=== PATIENT | female | born 1990 | race Two or more races ===

== ENCOUNTER 2022-08-09 11:37 | Emergency (ER) | payer OTHER ==
[~2022-08-09] VITALS: Ht 162.6 cm; Wt 61.2 kg
--- NOTE | 2022-08-09 12:25 | NUR ---
C/O RIGHT EYE SWELLING S/P "SOMETHING WENT INTO MY EYE" YESTERDAY AFTERNOON
[2022-08-09] MEDS ORDERED: FLUORESCEIN SODIUM OPHTH 1 EA STRIP ONE (12:58)
[2022-08-09] MEDS ORDERED: TETRAcaine 5 ML BOTTLE EACHEYE ONE (13:00)
[2022-08-09] MEDS ORDERED: FLUORESCEIN SODIUM OPHTH 1 EA STRIP OP ONE (13:00)
[2022-08-09] MEDS ORDERED: SULF1TAB48 PO (13:30)
--- NOTE | 2022-08-09 13:38 | NUR ---
Patient discharged to home in stable condition. Written and verbal after care instructions given. Patient verbalizes understanding of instruction.
[2022-08-09 13:39] VITALS: BP 121/61
== END 2022-08-09 13:39 | disposition home or self-care (01) ==
LOC: ER 11:50
DX: L03.213 Periorbital cellulitis (principal)